=== PATIENT | female | born 1985 | race Two or more races ===

== ENCOUNTER 2017-02-09 12:13 | Emergency (ER) | payer MEDICAID, OTHER ==
[~2017-02-09] VITALS: Ht 160 cm; Wt 71.8 kg
[~2017-02-09 12:13] MED LIST: IBUP-1222 PO; OXYC-302 PO; PREN1TAB56 PO
[2017-02-09] MEDS ORDERED: SODIUM CHLORIDE FLUSH 10ML SYR IVF ONE (15:00)
[2017-02-09 15:22] LABS: BASOPHILS # (AUTO) 0.03 x10^3/uL (0-0.1); BASOPHILS % (AUTO) 0 % (0-1); EOSINOPHILS # (AUTO) 0.02 x10^3/uL (0-0.4); EOSINOPHILS % (AUTO) 0 % (1-7); LYMPHOCYTES # (AUTO) 1.58 x10^3/uL (1-3.4); LYMPHOCYTES % (AUTO) 20 % (22-44); MD NO; MEAN CORPUSCULAR HEMOGLOBIN 34.7 pg (27.0-34.8); MEAN CORPUSCULAR HGB CONC 34.5 g/dL (32.4-35.8); MEAN CORPUSCULAR VOLUME 100.4 fL (80-100); MEAN PLATELET VOLUME 8.8 fL (7.4-10.4); MONOCYTES # (AUTO) 0.38 x10^3/uL (0.2-0.8); MONOCYTES % (AUTO) 5 % (2-9); NEUTROPHILS # (AUTO) 6.05 x10^3/uL (1.8-6.8); NEUTROPHILS % (AUTO) 75 % (42-75); PLATELET COUNT 220 x10^3/uL (130-400); RED CELL DISTRIBUTION WIDTH 13.7 % (9.6-15.2)
[2017-02-09 15:30] LABS: ALANINE AMINOTRANSFERASE 21 U/L (12-78); ALBUMIN 3.1 g/dL (3.4-5.0); ANION GAP 9 mmol/L (5-15); CALCIUM 8.4 mg/dL (8.5-10.1); CHLORIDE 104 mmol/L (98-107); CREATININE 0.47 mg/dL (0.55-1.02)
[2017-02-09 15:34] LABS: ALKALINE PHOSPHATASE 49 U/L (45-117); BILIRUBIN,TOTAL 0.3 mg/dL (0.2-1.0); TOTAL PROTEIN 7.3 g/dL (6.4-8.2); TROPONIN I < 0.015 ng/mL (0.000-0.045)
[2017-02-09] MEDS ORDERED: ACETAMINOPHEN 500 MG TABLET PO ONE (16:30)
[2017-02-09 16:37] VITALS: BP 152/72
[2017-02-09] MEDS ORDERED: ACETAMINOPHEN 500 MG TABLET ONE (16:42)
== END 2017-02-09 16:52 | disposition home or self-care (01) ==
LOC: ED 15:00
DX: O26.892 Other specified pregnancy related conditions, second trimester (principal); Z3A.20 20 weeks gestation of pregnancy; R07.89 Other chest pain
CPT/HCPCS: 36415; 71045; 80053; 84484; 85025; 93005; 99285

== ENCOUNTER 2017-05-17 10:59 | Outpatient (CLI) | payer MEDICAID ==
[~2017-05-17] VITALS: Ht 160 cm; Wt 76.4 kg
[2017-05-17 11:15] VITALS: BP 104/56
[2017-05-17 12:04] LABS: MICROSCOPIC INDICATED
== END 2017-05-17 15:05 | disposition home or self-care (01) ==
LOC: LDOP 10:59
PROVIDERS: ATTEND Student in an Organized Health Care Education/Training Program
DX: O46.8X3 Other antepartum hemorrhage, third trimester (principal); Z3A.33 33 weeks gestation of pregnancy
CPT/HCPCS: 59025; 76817; 76819; 81001; 87086; 99201; G0463

== ENCOUNTER 2017-06-23 20:54 | Inpatient (IN) | payer MEDICAID ==
[~2017-06-23] VITALS: Ht 160 cm; Wt 78.0 kg
[2017-06-23] MEDS ORDERED: OXYTOCIN 30U/ 0.9% NaCL 500ML 500 ML IV SCH (21:59)
[2017-06-23] MEDS ORDERED: LACTATED RINGERS 1,000 ML IV SCH ×2 (21:59→22:00)
[2017-06-23] MEDS ORDERED: LACTATED RINGERS 1,000 ML IVBOLUS ONE (22:00)
[2017-06-23] MEDS ORDERED: SODIUM CITRATE/CITRIC ACID 30 ML UDC PO ONE (22:00)
[2017-06-23] MEDS ORDERED: METOCLOPRAMIDE 5 MG/ML, 2ML IV ONE (22:00)
[2017-06-23] MEDS ORDERED: NEWBORN KIT ONE (22:12)
[2017-06-23] MEDS ORDERED: BUPIVACAINE/PF 0.5% ONE ×2 (22:34→22:36)
[2017-06-23] MEDS ORDERED: FENTANYL PF 100 MCG/2ML ONE (22:34)
[2017-06-23] MEDS ORDERED: CEFAZOLIN 1,000 MG ONE (22:34)
[2017-06-23] MEDS ORDERED: EPHEDRINE 50 MG/ML, 1ML ONE (22:34)
[2017-06-23] MEDS ORDERED: OXYTOCIN 10 UNITS/ML, 1ML ONE ×2 (22:34→23:27)
[2017-06-23] MEDS ORDERED: EPINEPHRINE 1 MG/ML, 1ML ONE (22:34)
[2017-06-23 22:37] LABS: BASOPHILS # (AUTO) 0.08 x10^3/uL (0-0.1); BASOPHILS % (AUTO) 1 % (0-1); EOSINOPHILS # (AUTO) 0.06 x10^3/uL (0-0.4); EOSINOPHILS % (AUTO) 1 % (1-7); LYMPHOCYTES # (AUTO) 1.45 x10^3/uL (1-3.4); LYMPHOCYTES % (AUTO) 21 % (22-44); MD NO; MEAN CORPUSCULAR HEMOGLOBIN 33.9 pg (27.0-34.8); MEAN CORPUSCULAR VOLUME 99.9 fL (80-100); MEAN PLATELET VOLUME 10.4 fL (7.4-10.4); MONOCYTES # (AUTO) 0.49 x10^3/uL (0.2-0.8); MONOCYTES % (AUTO) 7 % (2-9); NEUTROPHILS # (AUTO) 4.83 x10^3/uL (1.8-6.8); NEUTROPHILS % (AUTO) 70 % (42-75); PLATELET COUNT 200 x10^3/uL (130-400); RED BLOOD COUNT 3.57 x10^6/uL (3.82-5.3); RED CELL DISTRIBUTION WIDTH 14.8 % (9.6-15.2)
[2017-06-23] MEDS ORDERED: OXYTOCIN 30U/ 0.9% NaCL 500ML 500 ML ONE (22:47)
[2017-06-23] MEDS ORDERED: OXYcodone 5 MG/5 ML ORAL.SOL UDC PO PRN (23:00)
[2017-06-23] MEDS ORDERED: MEPERIDINE/PF 25MG/0.5ML IVPush PRN (23:00)
[2017-06-23] MEDS ORDERED: MORPHINE SULFATE 4 MG/ML, 1ML IVPush PRN (23:00)
[2017-06-23] MEDS ORDERED: FENTANYL PF 100 MCG/2ML IV PRN (23:00)
[2017-06-23] MEDS ORDERED: EPHEDRINE 50 MG/ML, 1ML IVPush PRN (23:00)
[2017-06-23] MEDS ORDERED: ONDANSETRON ODT 8 MG PO PRN (23:00)
[2017-06-23] MEDS ORDERED: KETOROLAC 30 MG/1 ML ONE (23:29)
[2017-06-24] MEDS: OXYTOCIN 30U/ 0.9% NaCL 500ML 500 ML IV SCH ×3 (00:01→20:01)
[2017-06-24] MEDS: LACTATED RINGERS 1,000 ML IV SCH ×6 (00:01→20:01)
[2017-06-24] MEDS ORDERED: KETOROLAC 30 MG/1 ML IV PRN (00:30)
[2017-06-24] MEDS ORDERED: ONDANSETRON 2MG/ML, 2ML IV PRN (00:30)
[2017-06-24] MEDS ORDERED: CALCIUM CARBONATE 500 MG TAB.CHEW PO PRN (00:30)
[2017-06-24] MEDS ORDERED: OXYcodone/APAP 5/325MG TABLET PO PRN ×2 (00:30)
[2017-06-24] MEDS ORDERED: ACETAMINOPHEN 325 MG TABLET PO PRN (00:30)
[2017-06-24] MEDS ORDERED: MEPERIDINE/PF 100 MG/ML IVPush PRN (00:30)
[2017-06-24] MEDS ORDERED: MISOPROSTOL 200 MCG TABLET PR PRN (00:30)
[2017-06-24] MEDS ORDERED: MEPERIDINE/PF 50 MG/ML IVPush PRN (00:30)
[2017-06-24] MEDS ORDERED: DIPHENHYDRAMINE 50 MG/ML, 1ML ONE (00:53)
[2017-06-24 01:20] VITALS: BP 107/68
[2017-06-24] MEDS ORDERED: DIPHENHYDRAMINE 50 MG/ML, 1ML IVPush PRN (01:30)
[2017-06-24 05:45] VITALS: BP 96/54
[2017-06-24] MEDS: KETOROLAC 30 MG/1 ML IV SCH ×4 (06:14→17:58)
[2017-06-24 07:15] VITALS: BP 93/53
[2017-06-24 07:51] LABS: BASOPHILS # (AUTO) 0.07 x10^3/uL (0-0.1); BASOPHILS % (AUTO) 1 % (0-1); EOSINOPHILS # (AUTO) 0.02 x10^3/uL (0-0.4); EOSINOPHILS % (AUTO) 0 % (1-7); LYMPHOCYTES # (AUTO) 1.34 x10^3/uL (1-3.4); LYMPHOCYTES % (AUTO) 13 % (22-44); MD NO; MEAN CORPUSCULAR HEMOGLOBIN 33.2 pg (27.0-34.8); MEAN CORPUSCULAR HGB CONC 33.6 g/dL (32.4-35.8); MEAN CORPUSCULAR VOLUME 98.7 fL (80-100); MEAN PLATELET VOLUME 9.8 fL (7.4-10.4); MONOCYTES # (AUTO) 0.64 x10^3/uL (0.2-0.8); MONOCYTES % (AUTO) 6 % (2-9); NEUTROPHILS # (AUTO) 8.15 x10^3/uL (1.8-6.8); NEUTROPHILS % (AUTO) 80 % (42-75); PLATELET COUNT 156 x10^3/uL (130-400); RED BLOOD COUNT 3.27 x10^6/uL (3.82-5.3); RED CELL DISTRIBUTION WIDTH 14.9 % (9.6-15.2)
[2017-06-24] MEDS: PRENATAL VIT/IRON/FA 1 EACH TABLET PO SCH (07:55)
[2017-06-24 12:15] VITALS: BP 89/54
[2017-06-24 16:00] VITALS: BP 101/62
[2017-06-24 20:30] VITALS: BP 106/63
[2017-06-25] MEDS: LACTATED RINGERS 1,000 ML IV SCH ×5 (00:01→16:01)
[2017-06-25] MEDS: KETOROLAC 30 MG/1 ML IV SCH ×3 (00:07→12:00)
[2017-06-25] MEDS: OXYTOCIN 30U/ 0.9% NaCL 500ML 500 ML IV SCH ×2 (06:01→16:01)
[2017-06-25 07:25] VITALS: BP 89/51
[2017-06-25] MEDS ORDERED: DOCUSATE 100 MG CAPSULE ONE (09:33)
[2017-06-25] MEDS: PRENATAL VIT/IRON/FA 1 EACH TABLET PO SCH (09:38)
[2017-06-25] MEDS: DOCUSATE 100 MG CAPSULE PO PRN ×2 (09:38→20:11)
[2017-06-25 19:43] VITALS: BP 97/58
[2017-06-25] MEDS: IBUPROFEN 600 MG TABLET PO PRN (20:11)
[2017-06-26 06:55] VITALS: BP 106/65
[2017-06-26] MEDS ORDERED: OXYC-302 PO (08:09)
[2017-06-26] MEDS: PRENATAL VIT/IRON/FA 1 EACH TABLET PO SCH (09:00)
[2017-06-26] MEDS: IBUPROFEN 600 MG TABLET PO PRN (12:32)
== END 2017-06-26 12:35 | disposition home or self-care (01) | DRG 766 ==
LOC: LDOP 20:54 → LDIP 22:00 → 2NW 06-24 01:11
PROVIDERS: ADMIT Student in an Organized Health Care Education/Training Program; ATTEND Student in an Organized Health Care Education/Training Program
PROC: 10D00Z1 Extraction of Products of Conception, Low, Open Approach (ICD-10-PCS; principal; 2017-06-23)
DX: O32.1XX0 Maternal care for breech presentation, not applicable or unspecified (principal); O42.92 Full-term premature rupture of membranes, unspecified as to length of time between rupture and onset of labor; Z37.0 Single live birth; Z3A.38 38 weeks gestation of pregnancy
CPT/HCPCS: 36415; 82803; 84112; 85025; 86850; 86900; 89060; J0171; J0690; J1885; J3010; J3490; J1200; J2590; J7120; Q0114